=== PATIENT | female | born 1945 | race Caucasian/White ===

== ENCOUNTER → 2016-11-21 | Outpatient (CLI) | payer MEDICARE, OTHER ==
--- NOTE | ~2016-11-21 | MR104 ---
[facility] A Service of [facility] RADIOLOGY TEXT RESULTS PATIENT: PATTI MAHMOOD LOCATION: [facility] : 43 UNIT #: [id number] AGE: [address]: Germain Gomes MD SEX: F ORDER DR: [id number] [address] [id number] O MR#: [id number] Acc #: [id number] NAME: PATTI MAHMOOD : 1945 SEX: F STUDY DATE/TIME: 11/21/2016 15:10 UNIT: [facility] ROOM: STUDY DESCRIPTION: MR Knee Wo Contrast Rt Attending Physician: Germain Gomes M.D. Referring Physician: Germain Gomes M.D. Ordering Physician: Germain Gomes M.D. Primary Care Physician: Tang Dunn M.D. MRI CENTER REPORT This report is preliminary unless electronic signature is present. EXAM MRI of the right knee without contrast HISTORY 71-year-old female, jumped and landed wrong twisting knee 11/17/2016 complains of increasing knee pain decreased mobility. FINDINGS Multiplanar multiecho imaging was performed of the right knee utilizing a high field magnet dedicated protocol. Study is degraded due to motion artifact but felt to be diagnostic. Patient was in considerable pain during the examination. Examination demonstrates marrow edema within the proximal tibia involving the tibial eminence and posterior aspect of the lateral tibial plateau. There is corresponding linear T1 signal abnormality extending to the cortical surface most likely representing trabecular microfractures or nondisplaced cortical fracture. No depression of the tibial plateau. Small knee effusion with a small lipoma hemarthrosis. Mild degenerative fraying inner margin of the lateral meniscus but no defined tear. The medial meniscus demonstrates mild myxoid degeneration but no tear. Mild chondromalacia medial and lateral compartments. In the patellofemoral compartment patellar and trochlear cartilage unremarkable. Anterior and posterior cruciate ligaments appear intact. The collateral ligaments and extensor mechanism unremarkable. Moderate amount of anterior lateral soft tissue swelling and edema. IMPRESSION 1. Extensive marrow edema tibial eminence and lateral tibial plateau with evidence of a trabecular microfracture or nondisplaced cortical fracture. No extension to the tibial plateau articular surface [facility] A Service of [facility] RADIOLOGY TEXT RESULTS PATIENT: PATTI MAHMOOD LOCATION: [facility] : 43 UNIT #: [id number] AGE: [address]: Germain Gomes MD SEX: F ORDER DR: identified and no evidence of depression of the tibial plateau. 2. Small lipohemarthrosis which would support a cortical fracture. 3. Myxoid degeneration medial and lateral menisci but no meniscal tear. Dictated by... Blair Hatfield M.D. THIS IS AN ELECTRONICALLY VERIFIED REPORT Blair Hatfield M.D. at 11/24/2016 4:50 PM DAPHNE/ramakrishna TD: 11/22/2016 15:06 JOB #: [id number] MRI [facility]ENTER REPORT Page 1 of 1
== END | disposition home or self-care (01) ==
LOC: SMRI 14:25
DX: M25.561 Pain in right knee (principal); M17.11 Unilateral primary osteoarthritis, right knee
CPT/HCPCS: 73721